=== PATIENT | female | born 2000 | race Caucasian/White ===

== ENCOUNTER 2020-04-11 12:53 | Emergency (ER) | payer MEDICAID ==
[~2020-04-11] VITALS: Ht 162.6 cm; Wt 52.3 kg
[2020-04-11 13:53] LABS: STREP SCREEN NEGATIVE
[2020-04-11 13:56] LABS: MONOSCREEN NEGATIVE
[2020-04-11 14:33] VITALS: BP 128/64; PULSE 84; TEMP 98.3
== END 2020-04-11 14:35 | disposition home or self-care (01) ==
LOC: COL.ER 12:53
PROVIDERS: Physician Assistant
DX: J03.90 Acute tonsillitis, unspecified (principal); F17.200 Nicotine dependence, unspecified, uncomplicated